=== PATIENT | female | born 1970 | race Caucasian/White ===

== ENCOUNTER 2020-02-11 15:22 | Inpatient (IN) | payer OTHER ==
[2020-02-11] MEDS ORDERED: HYDROmorphone 0.5 MG/0.5 ML Syringe IVPUSH ONE ×2 (16:06→16:46)
[2020-02-11] MEDS: Sodium Chloride 0.9% 1,000 ML IV SCH ×2 (16:28→20:55)
[2020-02-11] MEDS ORDERED: Ondansetron 4 MG/2 ML SDV IVPUSH PRN (16:45)
[2020-02-11] MEDS ORDERED: Sodium Chloride 0.9% 10 ML Syringe FLUSH PRN (17:00)
[2020-02-11] MEDS ORDERED: Sodium Chloride 0.9% 80 ML IV SCH (17:00)
[2020-02-11] MEDS ORDERED: Iopamidol 612 MG/ML 100 ML Bottle IV SCH (17:00)
[2020-02-11] MEDS ORDERED: Alum Hydrox/Mag Hydrox/Simeth 15 ML, Lidocaine 2% 15 ML PO ONE ×2 (17:35)
--- NOTE | 2020-02-11 18:03 | CRLCT ---
INDICATION: Abdominal pain and bloating. COMPARISON: None available. TECHNIQUE: Contiguous axial CT images of the abdomen and pelvis are acquired after the uneventful administration of IV contrast. Coronal and sagittal reformations generated reviewed. FINDINGS: In the left lung base there is a 1.4 x 0.9 x 1.3 cm nodule in the left lower lobe. There is an increased density within it, but it is difficult to know whether that is enhancement from the contrast or central calcifications. No other pulmonary nodules are identified. Normal heart size. No liver lesions. There is no biliary dilation. Patent hepatic vasculature. Normal gallbladder. Spleen, adrenal glands, and bilateral kidneys are unremarkable. Pancreas is unremarkable. Uterus contains a small amount of fluid in the endometrium but is otherwise unremarkable. There is a 2 cm cyst in the left ovary and the 1 cm cyst in the right ovary. The ovary size is otherwise symmetric. Urinary bladder is unremarkable. Bilateral fat containing inguinal hernias. Normal appendix. No evidence of bowel obstruction. No bowel wall thickening. There is no free fluid. No pneumoperitoneum. Normal caliber abdominal aorta. Iliac veins and IVC are unremarkable. No acute or aggressive osseous abnormalities are identified. IMPRESSION: 1. 1.4 cm nodule in left lower lobe. It has some central high density material. It is difficult to tell on this exam if that represents calcification or enhancement. Recommend noncontrast chest CT. If this is calcification within nodule it may be able to be characterize it as benign. 2. Bilateral ovarian cysts are likely physiologic. This could be a source of pain. 3. No other cause of abdominal pain is identified. Please note that all CT scans at this facility use dose modulation, iterative reconstruction, and/or weight-based dosing when appropriate to reduce radiation dose to as low as reasonably achievable. Dictated by Roque Rivera MD @ Feb 11 2020 5:42PM Signed by Dr. Roque Rivera @ Feb 11 2020 6:00PM
[2020-02-11] MEDS ORDERED: Pantoprazole 40 MG Vial IVPUSH ONE (18:31)
[2020-02-11] MEDS ORDERED: HYDROmorphone 1 MG/ML Syringe IVPUSH ONE (19:07)
[2020-02-11] MEDS ORDERED: LORazepam 2 MG/ML SDV IVPUSH ONE (19:12)
--- NOTE | 2020-02-11 20:14 | PCM.HP.2 ---
H&P History of Present Illness - General Date of Service: 02/11/20 Admit Problem/Dx: Admission Diagnosis/Problem Admission Diagnosis/Problem Epigastric pain Source of Information: Patient, Family, Provider History Limitations: Reports: No Limitations - History of Present Illness Initial Comments - Free Text/Narative: CC: It hurts across here HPI: Mai presents to the emergency room today with several weeks of progressive upper abdominal pain and bloating. She describes a pressure-like pain that spreads across her upper abdomen. Pain has steadily been getting worse and especially over the last couple of days. Pain does seem to come and go in waves without any obvious trigger other than laying down flat makes the pain worse. Pain seems to be better in the morning and gets worse as the day goes on. She has tried famotidine at home without any improvement. Pain does not obviously get better or worse when she eats. She has not had any fevers or chills. She does report rare heartburn. She has had some nausea but no significant vomiting. No change in her bowel habits. No dysuria or increased urinary frequency. She does not feel short of breath, especially with exertion. The dyspnea with exertion has been worse over the past few days. No skin rashes, myalgias. No loss of taste or smell. No obvious sick contacts or new medications. 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 Work-up in the emergency room has been fairly unremarkable. Laboratory studies are normal other than a mildly elevated AST and ALT. CT scan of the abdomen and pelvis was unremarkable. Patient has obviously been quite uncomfortable despite aggressive treatment provided in the emergency room. She will be admitted for symptomatic management and expedited work-up. - Related Data Allergies/Adverse Reactions: Allergies Allergy/AdvReac Type Severity Reaction Status Date / Time No Known Allergies Allergy Verified 02/11/20 15:38 Home Medications: Home Meds Clopidogrel [Plavix] 75 mg PO DAILY 02/11/20 [History] Metoprolol Succinate 50 mg PO DAILY 02/11/20 [History] Spironolactone [Aldactone] 25 mg PO DAILY 02/11/20 [History] atorvaSTATin [Lipitor] 40 mg PO BEDTIME 02/11/20 [History] Past Medical History Cardiovascular History: Reports: High Cholesterol, Hypertension Genitourinary History: Reports: Other (See Below) (Fibromuscular dysplasia) - Past Surgical History Cardiovascular Surgical History: Reports: Other (See Below) Other Cardiovascular Surgeries/Procedures: angioplasty Social & Family History - Family History Cardiac: Reports: CAD (grandparents) - Tobacco Use Smoking Status *Q: Never Smoker - Alcohol Use Alcohol Use History: Yes Alcohol Use in Last Twelve Months: No - Recreational Drug Use Recreational Drug Use: No H&P Review of Systems - Review of Systems: Review Of Systems: See Below Free Text/Narrative: A complete 12 point review of systems was obtained. Pertinent positives and negatives are noted in the history of present illness. All other systems were reviewed and were negative except as noted. Exam - Exam Exam: See Below - Vital Signs Vital Signs: Last Vital Signs Temp 36.9 C 02/11/20 15:46 Pulse 95 02/11/20 18:30 Resp 16 02/11/20 17:28 BP 151/97 H 02/11/20 18:30 Pulse Ox 98 02/11/20 17:28 Weight: 79.4 kg - Exam Quality Assessment: No: Supplemental Oxygen General: Alert, Oriented, Cooperative, Mild Distress HEENT: Conjunctiva Clear, Mucosa Moist & [place]. No: Scleral Icterus Neck: Supple, Trachea Midline Lungs: Clear to Auscultation, Normal Respiratory Effort Cardiovascular: Regular Rhythm, Tachycardia GI/Abdominal Exam: Normal Bowel Sounds, Soft, No Distention, Tender (mild across upper abdomen ). No: Guarding Back Exam: Normal Inspection, Full Range of Motion. No: Paraspinal Tenderness Extremities: No Pedal Edema. No: Joint Swelling, Increased Warmth Skin: Warm, Dry Neuro Extensive - Mental Status: Alert, Oriented x3, Nl Response to Commands Neuro Extensive - Motor, Sensory, Reflexes: CN II-XII Intact. No: Dysarthria, Abnormal Motor, Tremor Psychiatric: Alert, Normal Affect - Patient Data Lab Results Last 24 hrs: Laboratory Results - last 24 hr 02/11/20 02/11/20 02/11/20 Range/Units 16:15 16:15 16:15 WBC 8.8 (4.5-11.0) K/uL RBC 4.54 (3.30-5.50) M/uL Hgb 15.0 (12.0-15.0) g/dL Hct 45.7 (36.0-48.0) % MCV 101 H (80-98) fL MCH 33 H (27-31) pg MCHC 33 (32-36) % Plt Count 339 (150-400) K/uL Neut % (Auto) 66 (36-66) % Lymph % (Auto) 22 L (24-44) % [place] % (Auto) 11 H (2-6) % Eos % (Auto) 1 L (2-4) % Baso % (Auto) 1 (0-1) % Sodium 137 L (140-148) mmol/L Potassium 3.6 (3.6-5.2) mmol/L Chloride 98 L (100-108) mmol/L Carbon Dioxide 28 (21-32) mmol/L Anion Gap 14.6 H (5.0-14.0) mmol/L BUN 8 (7-18) mg/dL Creatinine 0.8 (0.6-1.0) mg/dL Est Cr Clr Drug Dosing 81.81 mL/min Estimated GFR (MDRD) > 60 (>60) Glucose 106 (74-106) mg/dL Calcium 9.5 (8.5-10.1) mg/dL Total Bilirubin 1.1 H (0.2-1.0) mg/dL AST 87 H (15-37) U/L ALT 83 H (12-78) U/L Alkaline Phosphatase 120 H (46-116) U/L Troponin I < 0.017 (0.000-0.056) ng/mL C-Reactive Protein (0.0-0.3) mg/dL Total Protein 8.0 (6.4-8.2) g/dL Albumin 4.5 (3.4-5.0) g/dL Globulin 3.5 (2.3-3.5) g/dL Albumin/Globulin Ratio 1.3 (1.2-2.2) Lipase 78 (73-393) U/L 02/11/20 Range/Units 19:25 WBC (4.5-11.0) K/uL RBC (3.30-5.50) M/uL Hgb (12.0-15.0) g/dL Hct (36.0-48.0) % MCV (80-98) fL MCH (27-31) pg MCHC (32-36) % Plt Count (150-400) K/uL Neut % (Auto) (36-66) % Lymph % (Auto) (24-44) % [place] % (Auto) (2-6) % Eos % (Auto) (2-4) % Baso % (Auto) (0-1) % Sodium (140-148) mmol/L Potassium (3.6-5.2) mmol/L Chloride (100-108) mmol/L Carbon Dioxide (21-32) mmol/L Anion Gap (5.0-14.0) mmol/L BUN (7-18) mg/dL Creatinine (0.6-1.0) mg/dL Est Cr Clr Drug Dosing mL/min Estimated GFR (MDRD) (>60) Glucose (74-106) mg/dL Calcium (8.5-10.1) mg/dL Total Bilirubin (0.2-1.0) mg/dL AST (15-37) U/L ALT (12-78) U/L Alkaline Phosphatase (46-116) U/L Troponin I (0.000-0.056) ng/mL C-Reactive Protein 0.08 (0.0-0.3) mg/dL Total Protein (6.4-8.2) g/dL Albumin (3.4-5.0) g/dL Globulin (2.3-3.5) g/dL Albumin/Globulin Ratio (1.2-2.2) Lipase (73-393) U/L Result Diagrams: 02/11/20 16:15 02/11/20 16:15 Imaging Impressions Last 24 hrs: CT Abd/Pelvis-images personally reviewed-no acute findings. Small left lower lung pulmonary nodule. Small cyst on each ovary. Normal appearing gallbladder. No obstruction. Sepsis Event Note - Evaluation Sepsis Screening Result: No Definite Risk - Focused Exam Vital Signs: Vital Signs Temp Pulse Resp BP Pulse Ox 02/11/20 18:30 95 151/97 H 02/11/20 18:15 89 159/107 H 02/11/20 17:28 108 H 16 156/105 H 98 02/11/20 16:38 113 H 16 154/96 H 99 02/11/20 15:46 36.9 C 111 H 166/105 H 98 02/11/20 15:37 36.9 C 111 H 16 166/105 H 98 Date Exam was Performed: 02/11/20 Time Exam was Performed: 20:19 *Q Meaningful Use (ADM) - VTE Risk Assess *Q Each Risk Factor Represents 1 Point: Age 41 - 59 years, Obesity ( BMI > 25 kg/m2) Total Score 1 Point Risk Factors: 2 Each Risk Factor Represents 2 Points: None Total Score 2 Point Risk Factors: 0 Each Risk Factor Represents 3 Points: None Total Score 3 Point Risk Factors: 0 Each Risk Factor Represents 5 Points: None Total Score 5 Point Risk Factors: 0 Venous Thromboembolism Risk Factor Score *Q: 2 - Problem List (1) Epigastric abdominal pain SNOMED Code(s): 79668442 ICD Code: R10.13 - EPIGASTRIC PAIN Status: Acute Current Visit: Yes Problem List Initiated/Reviewed/Updated: Yes Orders Last 24hrs: Active Orders 24 hr Category Date Time Status Patient Status Manage Transfer [TRANSFER] Routine ADT 02/11/20 20:04 Ordered CORONAVIRUS COVID-19 RAQUEL [MOLEC] Routine Lab 02/11/20 19:14 Received Iopamidol [Isovue-300 (61%)] Med 02/11/20 17:00 Active 100 ml IV . DIRECTED Ondansetron [Zofran] Med 02/11/20 16:45 Active 4 mg IVPUSH Q4H PRN Sodium Chloride 0.9% [Normal Saline] 1,000 ml Med 02/11/20 16:15 Active IV ASDIRECTED Sodium Chloride 0.9% [Normal Saline] 80 ml Med 02/11/20 17:00 Active IV ASDIRECTED Sodium Chloride 0.9% [Saline Flush] Med 02/11/20 17:00 Active 10 ml FLUSH ASDIRECTED PRN Resuscitation Status Routine Resus Stat 02/11/20 20:05 Ordered Medication Orders Sodium Chloride (Normal Saline) 1,000 mls @ 500 mls/hr IV ASDIRECTED [facility] Last Admin: 02/11/20 16:28 Dose: 500 mls/hr Documented by: AMBER Sodium Chloride (Normal Saline) 80 mls @ 3 mls/sec IV ASDIRECTED ASHWIN Last Admin: 02/11/20 17:11 Dose: 3 mls/sec Documented by: NAYELI Iopamidol (Isovue-300 (61%)) 100 ml IV . DIRECTED [facility] Last Admin: 02/11/20 17:11 Dose: 100 ml Documented by: NAYELI Ondansetron HCl (Zofran) 4 mg IVPUSH Q4H PRN PRN Reason: Nausea/Vomiting Last Admin: 02/11/20 16:50 Dose: 4 mg Documented by: TERESA Sodium Chloride (Saline Flush) 10 ml FLUSH ASDIRECTED PRN PRN Reason: Keep Vein Open Last Admin: 02/11/20 17:11 Dose: 10 ml Documented by: NAYELI Assessment/Plan Comment:: ASSESSMENT AND PLAN - Epigastric abdominal pain-acute worsening on subacute pain. CT scan unremarkable. Labs fairly unremarkable. CRP normal. COVID19 testing was negative. Differential could include chronic cholecystitis versus peptic ulcer disease versus gastritis. She is quite uncomfortable and not safe for outpatient management at this time. -Symptomatic management of pain and nausea overnight -EGD in the morning -HIDA scan in the morning Secondary hypertension-history of fibromuscular dysplasia with recent angioplasty. Blood pressure currently under good control. -Continue home medications Maintenance issues - - DVT prophylaxis -mechanical - GI prophylaxis -patient received a PPI tonight - Nutrition -clear liquids tonight, nothing by mouth after midnight - Winters catheter -not indicated CODE STATUS -full code Admission justification -patient will be referred observation status for expe dited work-up and symptomatic management Disposition -I would anticipate discharge home after the hospital stay Primary care physician -she receives her primary care in the [facility] Mario Pandya M.D. - Mortality Measure Prognosis:: Good
[2020-02-11] MEDS ORDERED: Ondansetron 4 MG/2 ML SDV IV PRN (20:57)
[2020-02-11] MEDS ORDERED: Sodium Chloride 0.9% 1,000 ML IV SCH (20:57)
[2020-02-11] MEDS ORDERED: LORazepam 2 MG/ML SDV IVPUSH PRN (20:57)
[2020-02-11] MEDS ORDERED: oxyCODONE 5 MG Tab PO PRN (20:57)
[2020-02-11] MEDS ORDERED: Ondansetron 4 MG Tab.DIS PO PRN (20:57)
[2020-02-11] MEDS ORDERED: Metoclopramide 10 MG/2 ML SDV IVPUSH PRN (20:57)
[2020-02-11] MEDS ORDERED: Acetaminophen 325 MG Tab PO PRN (20:57)
[2020-02-11] MEDS ORDERED: atorvaSTATin 20 MG Tab PO SCH (21:00)
[2020-02-12] MEDS: HYDROmorphone 1 MG/ML Syringe IVPUSH PRN ×4 (04:40→16:24)
--- NOTE | 2020-02-12 08:34 | PCM.HP.2 ---
H&P History of Present Illness - General Date of Service: 02/12/20 Admit Problem/Dx: Admission Diagnosis/Problem Admission Diagnosis/Problem Epigastric pain Source of Information: Patient History Limitations: Reports: No Limitations - History of Present Illness Onset of Symptoms: Reports: Gradual Duration of Symptoms: Reports: Day(s):, Getting Worse Location: Reports: Abdomen Quality: Reports: Ache, Dull, Pressure, Stabbing Severity: Mild Improves with: Reports: Medication Worsens with: Reports: None Context: Reports: Sick Contact Associated Symptoms: Reports: No Other Symptoms Epigastric Pain Score (Numeric/FACES): 6 - Related Data Allergies/Adverse Reactions: Allergies Allergy/AdvReac Type Severity Reaction Status Date / Time No Known Allergies Allergy Verified 02/11/20 15:38 Home Medications: Home Meds Clopidogrel [Plavix] 75 mg PO DAILY 02/11/20 [History] Metoprolol Succinate 50 mg PO DAILY 02/11/20 [History] Spironolactone [Aldactone] 25 mg PO DAILY 02/11/20 [History] atorvaSTATin [Lipitor] 40 mg PO BEDTIME 02/11/20 [History] Past Medical History Cardiovascular History: Reports: High Cholesterol, Hypertension Genitourinary History: Reports: Other (See Below) - Past Surgical History Cardiovascular Surgical History: Reports: Other (See Below) Other Cardiovascular Surgeries/Procedures: angioplasty Social & Family History - Family History Cardiac: Reports: CAD - Tobacco Use Smoking Status *Q: Never Smoker - Caffeine Use Caffeine Use: Reports: Coffee - Recreational Drug Use Recreational Drug Use: No H&P Review of Systems - Review of Systems: Review Of Systems: Comprehensive ROS is negative, except as noted in HPI. Exam - Exam Exam: See Below - Vital Signs Vital Signs: Last Vital Signs Temp 97.4 F 02/12/20 07:28 Pulse 77 02/12/20 07:28 Resp 16 02/12/20 07:28 BP 131/90 02/12/20 07:28 Pulse Ox 94 L 02/12/20 07:28 Weight: 179 lb 6.4 oz - Exam General: Alert, Oriented, Cooperative HEENT: PERRLA Neck: Supple, Trachea Midline Lungs: Clear to Auscultation, Normal Respiratory Effort Cardiovascular: Regular Rate GI/Abdominal Exam: Soft, Guarding (right upper quadrant) (Female) Exam: Deferred Rectal (Female) Exam: Deferred Back Exam: Normal Inspection, Full Range of Motion Extremities: Normal Inspection, Normal Range of Motion Skin: Warm, Dry, Intact Neurological: Cranial Nerves Intact, Reflexes Equal Bilateral Neuro Extensive - Mental Status: Alert, Oriented x3, Normal Mood/Affect Neuro Extensive - Motor, Sensory, Reflexes: CN II-XII Intact Psychiatric: Alert, Normal Affect, Normal Mood - Patient Data Lab Results Last 24 hrs: Laboratory Results - last 24 hr 02/11/20 02/11/20 02/11/20 Range/Units 16:15 16:15 16:15 WBC 8.8 (4.5-11.0) K/uL RBC 4.54 (3.30-5.50) M/uL Hgb 15.0 (12.0-15.0) g/dL Hct 45.7 (36.0-48.0) % MCV 101 H (80-98) fL MCH 33 H (27-31) pg MCHC 33 (32-36) % Plt Count 339 (150-400) K/uL Neut % (Auto) 66 (36-66) % Lymph % (Auto) 22 L (24-44) % [place] % (Auto) 11 H (2-6) % Eos % (Auto) 1 L (2-4) % Baso % (Auto) 1 (0-1) % Sodium 137 L (140-148) mmol/L Potassium 3.6 (3.6-5.2) mmol/L Chloride 98 L (100-108) mmol/L Carbon Dioxide 28 (21-32) mmol/L Anion Gap 14.6 H (5.0-14.0) mmol/L BUN 8 (7-18) mg/dL Creatinine 0.8 (0.6-1.0) mg/dL Est Cr Clr Drug Dosing 81.81 mL/min Estimated GFR (MDRD) > 60 (>60) Glucose 106 (74-106) mg/dL Calcium 9.5 (8.5-10.1) mg/dL Total Bilirubin 1.1 H (0.2-1.0) mg/dL AST 87 H (15-37) U/L ALT 83 H (12-78) U/L Alkaline Phosphatase 120 H (46-116) U/L Troponin I < 0.017 (0.000-0.056) ng/mL C-Reactive Protein (0.0-0.3) mg/dL Total Protein 8.0 (6.4-8.2) g/dL Albumin 4.5 (3.4-5.0) g/dL Globulin 3.5 (2.3-3.5) g/dL Albumin/Globulin Ratio 1.3 (1.2-2.2) Lipase 78 (73-393) U/L SARS Virus RNA (PCR) (NEGATIVE) 02/11/20 02/11/20 02/12/20 Range/Units 19:14 19:25 04:37 WBC 6.2 (4.5-11.0) K/uL RBC 4.15 (3.30-5.50) M/uL Hgb 13.4 (12.0-15.0) g/dL Hct 42.4 (36.0-48.0) % MCV 102 H (80-98) fL MCH 32 H (27-31) pg MCHC 32 (32-36) % Plt Count 307 (150-400) K/uL Neut % (Auto) (36-66) % Lymph % (Auto) (24-44) % [place] % (Auto) (2-6) % Eos % (Auto) (2-4) % Baso % (Auto) (0-1) % Sodium (140-148) mmol/L Potassium (3.6-5.2) mmol/L Chloride (100-108) mmol/L Carbon Dioxide (21-32) mmol/L Anion Gap (5.0-14.0) mmol/L BUN (7-18) mg/dL Creatinine (0.6-1.0) mg/dL Est Cr Clr Drug Dosing mL/min Estimated GFR (MDRD) (>60) Glucose (74-106) mg/dL Calcium (8.5-10.1) mg/dL Total Bilirubin (0.2-1.0) mg/dL AST (15-37) U/L ALT (12-78) U/L Alkaline Phosphatase (46-116) U/L Troponin I (0.000-0.056) ng/mL C-Reactive Protein 0.08 (0.0-0.3) mg/dL Total Protein (6.4-8.2) g/dL Albumin (3.4-5.0) g/dL Globulin (2.3-3.5) g/dL Albumin/Globulin Ratio (1.2-2.2) Lipase (73-393) U/L SARS Virus RNA (PCR) Negative (NEGATIVE) 02/12/20 Range/Units 04:37 WBC (4.5-11.0) K/uL RBC (3.30-5.50) M/uL Hgb (12.0-15.0) g/dL Hct (36.0-48.0) % MCV (80-98) fL MCH (27-31) pg MCHC (32-36) % Plt Count (150-400) K/uL Neut % (Auto) (36-66) % Lymph % (Auto) (24-44) % [place] % (Auto) (2-6) % Eos % (Auto) (2-4) % Baso % (Auto) (0-1) % Sodium 140 (140-148) mmol/L Potassium 3.5 L (3.6-5.2) mmol/L Chloride 105 (100-108) mmol/L Carbon Dioxide 28 (21-32) mmol/L Anion Gap 10.5 (5.0-14.0) mmol/L BUN 5 L (7-18) mg/dL Creatinine 0.8 (0.6-1.0) mg/dL Est Cr Clr Drug Dosing 81.81 mL/min Estimated GFR (MDRD) > 60 (>60) Glucose 111 H (74-106) mg/dL Calcium 7.8 L D (8.5-10.1) mg/dL Total Bilirubin 1.1 H (0.2-1.0) mg/dL AST 51 H (15-37) U/L ALT 56 (12-78) U/L Alkaline Phosphatase 94 (46-116) U/L Troponin I (0.000-0.056) ng/mL C-Reactive Protein (0.0-0.3) mg/dL Total Protein 6.0 L (6.4-8.2) g/dL Albumin 3.2 L (3.4-5.0) g/dL Globulin 2.8 (2.3-3.5) g/dL Albumin/Globulin Ratio 1.1 L (1.2-2.2) Lipase (73-393) U/L SARS Virus RNA (PCR) (NEGATIVE) Result Diagrams: 02/12/20 04:37 02/12/20 04:37 Sepsis Event Note - Evaluation Sepsis Screening Result: No Definite Risk - Focused Exam Vital Signs: Vital Signs Temp Temp Pulse Resp BP Pulse Ox 02/12/20 07:28 97.4 F 77 16 131/90 94 L 02/12/20 04:17 97.4 F 83 16 120/75 98 02/11/20 20:56 97.0 F 88 16 166/96 H 95 Date Exam was Performed: 02/12/20 Time Exam was Performed: 08:31 Problem List Initiated/Reviewed/Updated: Yes Orders Last 24hrs: Active Orders 24 hr Category Date Time Status Patient Status [ADT] Routine ADT 02/11/20 20:57 Active Antiembolic Devices [RC] .Routine Care 02/11/20 20:57 Active Communication Order [RC] ASDIRECTED Care 02/12/20 07:38 Active Intake and Output [RC] QSHIFT Care 02/11/20 20:57 Active Notify Provider Consults [RC] ASDIRECTED Care 02/11/20 20:57 Active Notify Provider Vital Signs [RC] ASDIRECTED Care 02/11/20 20:57 Active Oxygen Therapy [RC] PRN Care 02/11/20 20:57 Active Up ad Mayuri [RC] ASDIRECTED Care 02/11/20 20:57 Active VTE/DVT Education [RC] Per Unit Routine Care 02/11/20 20:57 Active Vital Signs [RC] Q4H Care 02/11/20 20:57 Active Consult to Physician [CONS] Routine Cons 02/11/20 20:57 Ordered Nothing per Oral After Midnight Diet [DIET] Diet 02/11/20 Dinner Active Cholescintigraphy w Pharm Int [NM] Routine Exams 02/12/20 07:00 Ordered Acetaminophen [Tylenol] Med 02/11/20 20:57 Active 650 mg PO Q4H PRN Clopidogrel [Plavix] Med 02/12/20 09:00 Active 75 mg PO DAILY HYDROmorphone [Dilaudid] Med 02/11/20 20:57 Active 1 mg IVPUSH Q2H PRN LORazepam [Ativan] Med 02/11/20 20:57 Active 0.5 mg IVPUSH Q4H PRN Metoclopramide [Reglan] Med 02/11/20 20:57 Active 5 mg IVPUSH Q6H PRN Metoprolol Succinate [Toprol XL] Med 02/12/20 09:00 Active 50 mg PO DAILY Ondansetron [Zofran ODT] Med 02/11/20 20:57 Active 4 mg PO Q6H PRN Ondansetron [Zofran] Med 02/11/20 20:57 Active 4 mg IV Q6H PRN Pantoprazole [ProTONIX IV] Med 02/12/20 09:00 Active 40 mg IVPUSH BID Sodium Chloride 0.9% [Normal Saline] 1,000 ml Med 02/11/20 20:57 Active IV ASDIRECTED Spironolactone [Aldactone] Med 02/12/20 09:00 Active 25 mg PO DAILY atorvaSTATin [Lipitor] Med 02/12/20 09:00 Active 40 mg PO DAILY oxyCODONE Med 02/11/20 20:57 Active 5 - 10 mg PO Q4H PRN Sequential Compression Device [OM.PC] Routine Oth 02/11/20 20:57 Ordered Resuscitation Status Routine Resus Stat 02/11/20 20:05 Ordered Medication Orders Acetaminophen (Tylenol) 650 mg PO Q4H PRN PRN Reason: Pain (Mild 1-3)/fever Atorvastatin Calcium (Lipitor) 40 mg PO DAILY ASHWIN Clopidogrel Bisulfate (Plavix) 75 mg PO DAILY ASHWIN Hydromorphone HCl (Dilaudid) 1 mg IVPUSH Q2H PRN PRN Reason: Pain (severe 7-10) Last Admin: 02/12/20 07:35 Dose: 1 mg Documented by: Admin: 02/12/20 04:40 Dose: 1 mg Documented by: GILDA Sodium Chloride (Normal Saline) 1,000 mls @ 100 mls/hr IV ASDIRECTED ASHWIN Last Admin: 02/12/20 04:42 Dose: 100 mls/hr Documented by: GILDA Lorazepam (Ativan) 0.5 mg IVPUSH Q4H PRN PRN Reason: Nausea/Vomiting Metoclopramide HCl (Reglan) 5 mg IVPUSH Q6H PRN PRN Reason: Nausea Metoprolol Succinate (Toprol Xl) 50 mg PO DAILY ASHWIN Ondansetron HCl (Zofran) 4 mg IV Q6H PRN PRN Reason: Nausea/Vomiting Last Admin: 02/12/20 04:41 Dose: 4 mg Documented by: GILDA Ondansetron HCl (Zofran Odt) 4 mg PO Q6H PRN PRN Reason: Nausea able to take PO Oxycodone HCl (Oxycodone) 5 - 10 mg PO Q4H PRN PRN Reason: Pain Pantoprazole Sodium (Protonix Iv) 40 mg IVPUSH BID ASHWIN Spironolactone (Aldactone) 25 mg PO DAILY ASHWIN Assessment/Plan Comment:: ASSESSMENT AND PLAN - Epigastric abdominal pain-acute worsening on subacute pain. CT scan unremarkable. Labs fairly unremarkable. CRP normal. COVID19 testing was negative. Differential could include chronic cholecystitis versus peptic ulcer disease versus gastritis. She is quite uncomfortable and not safe for outpatient management at this time. -Symptomatic management of pain and nausea overnight -EGD in the morning -HIDA scan in the morning Secondary hypertension-history of fibromuscular dysplasia with recent angioplasty. Blood pressure currently under good control. -Continue home medications Maintenance issues - - DVT prophylaxis -mechanical - GI prophylaxis -patient received a PPI tonight - Nutrition -clear liquids tonight, nothing by mouth after midnight - Winters catheter -not indicated CODE STATUS -full code Admission justification -patient will be referred observation status for expedited work-up and symptomatic management Disposition -I would anticipate discharge home after the hospital stay Primary care physician -she receives her primary care in the [facility] Mario Pandya M.D. - Mortality Measure Prognosis:: Good (Thank you for this consult.)
[2020-02-12] MEDS ORDERED: fentaNYL 100 MCG/2 ML SDV ONE (10:15)
[2020-02-12] MEDS ORDERED: Propofol 200 MG/20 ML SDV ONE (10:15)
[2020-02-12] MEDS ORDERED: Midazolam 1 MG/ML 2 ML SDV ONE (10:15)
--- NOTE | 2020-02-12 10:40 | PCM.PN ---
- General Info Date of Service: 02/12/20 Subjective Update: No acute events overnight. No fevers. Abdominal pain is better but not resolved. She has received 2 doses of IV pain medication since admission from the emergency room. Mild nausea but no vomiting. HIDA scan was abnormal with an ejection fraction of 15%. EGD planned for later in the morning. Functional Status: Reports: Pain Controlled - Patient Data Vitals - Most Recent: Last Vital Signs Temp 36.0 C L 02/12/20 10:28 Pulse 77 02/12/20 10:28 Resp 16 02/12/20 10:28 BP 139/84 02/12/20 10:28 Pulse Ox 96 02/12/20 10:28 Weight - Most Recent: 81.374 kg I&O - Last 24 Hours: Intake & Output 02/11/20 02/12/20 02/12/20 22:59 06:59 14:59 Intake Total 962 Output Total 450 300 Balance 512 -300 Lab Results Last 24 Hours: Laboratory Results - last 24 hr 02/11/20 02/11/20 02/11/20 Range/Units 16:15 16:15 16:15 WBC 8.8 (4.5-11.0) K/uL RBC 4.54 (3.30-5.50) M/uL Hgb 15.0 (12.0-15.0) g/dL Hct 45.7 (36.0-48.0) % MCV 101 H (80-98) fL MCH 33 H (27-31) pg MCHC 33 (32-36) % Plt Count 339 (150-400) K/uL Neut % (Auto) 66 (36-66) % Lymph % (Auto) 22 L (24-44) % Nuckolls % (Auto) 11 H (2-6) % Eos % (Auto) 1 L (2-4) % Baso % (Auto) 1 (0-1) % Sodium 137 L (140-148) mmol/L Potassium 3.6 (3.6-5.2) mmol/L Chloride 98 L (100-108) mmol/L Carbon Dioxide 28 (21-32) mmol/L Anion Gap 14.6 H (5.0-14.0) mmol/L BUN 8 (7-18) mg/dL Creatinine 0.8 (0.6-1.0) mg/dL Est Cr Clr Drug Dosing 81.81 mL/min Estimated GFR (MDRD) > 60 (>60) Glucose 106 (74-106) mg/dL Calcium 9.5 (8.5-10.1) mg/dL Total Bilirubin 1.1 H (0.2-1.0) mg/dL AST 87 H (15-37) U/L ALT 83 H (12-78) U/L Alkaline Phosphatase 120 H (46-116) U/L Troponin I < 0.017 (0.000-0.056) ng/mL C-Reactive Protein (0.0-0.3) mg/dL Total Protein 8.0 (6.4-8.2) g/dL Albumin 4.5 (3.4-5.0) g/dL Globulin 3.5 (2.3-3.5) g/dL Albumin/Globulin Ratio 1.3 (1.2-2.2) Lipase 78 (73-393) U/L SARS Virus RNA (PCR) (NEGATIVE) 02/11/20 02/11/20 02/12/20 Range/Units 19:14 19:25 04:37 WBC 6.2 (4.5-11.0) K/uL RBC 4.15 (3.30-5.50) M/uL Hgb 13.4 (12.0-15.0) g/dL Hct 42.4 (36.0-48.0) % MCV 102 H (80-98) fL MCH 32 H (27-31) pg MCHC 32 (32-36) % Plt Count 307 (150-400) K/uL Neut % (Auto) (36-66) % Lymph % (Auto) (24-44) % Nuckolls % (Auto) (2-6) % Eos % (Auto) (2-4) % Baso % (Auto) (0-1) % Sodium (140-148) mmol/L Potassium (3.6-5.2) mmol/L Chloride (100-108) mmol/L Carbon Dioxide (21-32) mmol/L Anion Gap (5.0-14.0) mmol/L BUN (7-18) mg/dL Creatinine (0.6-1.0) mg/dL Est Cr Clr Drug Dosing mL/min Estimated GFR (MDRD) (>60) Glucose (74-106) mg/dL Calcium (8.5-10.1) mg/dL Total Bilirubin (0.2-1.0) mg/dL AST (15-37) U/L ALT (12-78) U/L Alkaline Phosphatase (46-116) U/L Troponin I (0.000-0.056) ng/mL C-Reactive Protein 0.08 (0.0-0.3) mg/dL Total Protein (6.4-8.2) g/dL Albumin (3.4-5.0) g/dL Globulin (2.3-3.5) g/dL Albumin/Globulin Ratio (1.2-2.2) Lipase (73-393) U/L SARS Virus RNA (PCR) Negative (NEGATIVE) 02/12/20 Range/Units 04:37 WBC (4.5-11.0) K/uL RBC (3.30-5.50) M/uL Hgb (12.0-15.0) g/dL Hct (36.0-48.0) % MCV (80-98) fL MCH (27-31) pg MCHC (32-36) % Plt Count (150-400) K/uL Neut % (Auto) (36-66) % Lymph % (Auto) (24-44) % Nuckolls % (Auto) (2-6) % Eos % (Auto) (2-4) % Baso % (Auto) (0-1) % Sodium 140 (140-148) mmol/L Potassium 3.5 L (3.6-5.2) mmol/L Chloride 105 (100-108) mmol/L Carbon Dioxide 28 (21-32) mmol/L Anion Gap 10.5 (5.0-14.0) mmol/L BUN 5 L (7-18) mg/dL Creatinine 0.8 (0.6-1.0) mg/dL Est Cr Clr Drug Dosing 81.81 mL/min Estimated GFR (MDRD) > 60 (>60) Glucose 111 H (74-106) mg/dL Calcium 7.8 L D (8.5-10.1) mg/dL Total Bilirubin 1.1 H (0.2-1.0) mg/dL AST 51 H (15-37) U/L ALT 56 (12-78) U/L Alkaline Phosphatase 94 (46-116) U/L Troponin I (0.000-0.056) ng/mL C-Reactive Protein (0.0-0.3) mg/dL Total Protein 6.0 L (6.4-8.2) g/dL Albumin 3.2 L (3.4-5.0) g/dL Globulin 2.8 (2.3-3.5) g/dL Albumin/Globulin Ratio 1.1 L (1.2-2.2) Lipase (73-393) U/L SARS Virus RNA (PCR) (NEGATIVE) Med Orders - Current: Current Medications Acetaminophen (Tylenol) 650 mg PO Q4H PRN PRN Reason: Pain (Mild 1-3)/fever Atorvastatin Calcium (Lipitor) 40 mg PO DAILY [facility] Clopidogrel Bisulfate (Plavix) 75 mg PO DAILY [facility] Hydromorphone HCl (Dilaudid) 1 mg IVPUSH Q2H PRN PRN Reason: Pain (severe 7-10) Last Admin: 02/12/20 07:35 Dose: 1 mg Documented by: Sodium Chloride (Normal Saline) 1,000 mls @ 100 mls/hr IV ASDIRECTED [facility] Last Admin: 02/12/20 04:42 Dose: 100 mls/hr Documented by: Lorazepam (Ativan) 0.5 mg IVPUSH Q4H PRN PRN Reason: Nausea/Vomiting Metoclopramide HCl (Reglan) 5 mg IVPUSH Q6H PRN PRN Reason: Nausea Metoprolol Succinate (Toprol Xl) 50 mg PO DAILY [facility] Ondansetron HCl (Zofran) 4 mg IV Q6H PRN PRN Reason: Nausea/Vomiting Last Admin: 02/12/20 04:41 Dose: 4 mg Documented by: Ondansetron HCl (Zofran Odt) 4 mg PO Q6H PRN PRN Reason: Nausea able to take PO Oxycodone HCl (Oxycodone) 5 - 10 mg PO Q4H PRN PRN Reason: Pain Pantoprazole Sodium (Protonix Iv) 40 mg IVPUSH BID [facility] Spironolactone (Aldactone) 25 mg PO DAILY [facility] Discontinued Medications Atorvastatin Calcium (Lipitor) 40 mg PO BEDTIME [facility] Last Admin: 02/11/20 23:00 Dose: Not Given Documented by: Al Hydroxide/Mg Hydroxide 15 (ml/ Lidocaine HCl 15 ml) 0 ml PO ONETIME ONE Stop: 02/11/20 17:36 Last Admin: 02/11/20 17:45 Dose: 15 ml Documented by: Fentanyl (Sublimaze) Confirm Administered Dose 100 mcg .ROUTE .STK-MED ONE Stop: 02/12/20 10:16 Hydromorphone HCl (Dilaudid) 0.5 mg IVPUSH ONETIME ONE Stop: 02/11/20 16:07 Last Admin: 02/11/20 16:25 Dose: 0.5 mg Documented by: Hydromorphone HCl (Dilaudid) 0.5 mg IVPUSH ONETIME ONE Stop: 02/11/20 16:47 Last Admin: 02/11/20 16:52 Dose: 0.5 mg Documented by: Hydromorphone HCl (Dilaudid) 1 mg IVPUSH ONETIME ONE Stop: 02/11/20 19:08 Last Admin: 02/11/20 20:41 Dose: 1 mg Documented by: Sodium Chloride (Normal Saline) 1,000 mls @ 500 mls/hr IV ASDIRECTED [facility] Last Admin: 02/11/20 20:55 Dose: 500 mls/hr Documented by: Sodium Chloride (Normal Saline) 80 mls @ 3 mls/sec IV ASDIRECTED [facility] Last Admin: 02/11/20 17:11 Dose: 3 mls/sec Documented by: Iopamidol (Isovue-300 (61%)) 100 ml IV . DIRECTED [facility] Last Admin: 02/11/20 17:11 Dose: 100 ml Documented by: Lorazepam (Ativan) 0.5 mg IVPUSH ONETIME ONE Stop: 02/11/20 19:13 Last Admin: 02/11/20 19:20 Dose: 0.5 mg Documented by: Midazolam HCl (Versed 1 Mg/Ml) Confirm Administered Dose 2 mg .ROUTE .STK-MED ONE Stop: 02/12/20 10:16 Ondansetron HCl (Zofran) 4 mg IVPUSH Q4H PRN PRN Reason: Nausea/Vomiting Last Admin: 02/11/20 16:50 Dose: 4 mg Documented by: Pantoprazole Sodium (Protonix Iv) 40 mg IVPUSH ONETIME ONE Stop: 02/11/20 18:32 Last Admin: 02/11/20 18:38 Dose: 40 mg Documented by: Propofol (Diprivan 20 Ml) Confirm Administered Dose 200 mg .ROUTE .STK-MED ONE Stop: 02/12/20 10:16 Sodium Chloride (Saline Flush) 10 ml FLUSH ASDIRECTED PRN PRN Reason: Keep Vein Open Last Admin: 02/11/20 17:11 Dose: 10 ml Documented by: - Exam Quality Assessment: No: Supplemental Oxygen General: Alert, Oriented, Cooperative, No Acute Distress Lungs: Normal Respiratory Effort Cardiovascular: Regular Rate, Regular Rhythm GI/Abdominal Exam: Soft, No Distention Extremities: No Pedal Edema Psy/Mental Status: Alert, Normal Affect Sepsis Event Note - Evaluation Sepsis Screening Result: No Definite Risk - Focused Exam Vital Signs: Vital Signs Temp Pulse Resp BP Pulse Ox 02/12/20 10:28 36.0 C L 77 16 139/84 96 02/12/20 07:28 36.3 C 77 16 131/90 94 L 02/12/20 04:17 36.3 C 83 16 120/75 98 Date Exam was Performed: 02/12/20 Time Exam was Performed: 10:37 - Problem List & Annotations (1) Epigastric abdominal pain SNOMED Code(s): 83367275 Code(s): R10.13 - EPIGASTRIC PAIN Status: Acute Current Visit: Yes - Problem List Review Problem List Initiated/Reviewed/Updated: Yes - My Orders Last 24 Hours: My Active Orders 02/11/20 Dinner Nothing per Oral After Midnight Diet [DIET] 02/11/20 20:05 Resuscitation Status Routine 02/11/20 20:57 Acetaminophen [Tylenol] 650 mg PO Q4H PRN HYDROmorphone [Dilaudid] 1 mg IVPUSH Q2H PRN LORazepam [Ativan] 0.5 mg IVPUSH Q4H PRN Metoclopramide [Reglan] 5 mg IVPUSH Q6H PRN Ondansetron [Zofran ODT] 4 mg PO Q6H PRN Ondansetron [Zofran] 4 mg IV Q6H PRN Sodium Chloride 0.9% [Normal Saline] 1,000 ml IV ASDIRECTED oxyCODONE 5 - 10 mg PO Q4H PRN 02/11/20 20:57 Patient Status [ADT] Routine Antiembolic Devices [RC] .Routine Intake and Output [RC] QSHIFT Notify Provider Consults [RC] ASDIRECTED Notify Provider Vital Signs [RC] ASDIRECTED Oxygen Therapy [RC] PRN Up ad Mayuri [RC] ASDIRECTED VTE/DVT Education [RC] Per Unit Routine Vital Signs [RC] Q4H Consult to Physician [CONS] Routine Sequential Compression Device [OM.PC] Routine 02/12/20 07:00 Cholescintigraphy w Pharm Int [NM] Routine 02/12/20 09:00 Clopidogrel [Plavix] 75 mg PO DAILY Metoprolol Succinate [Toprol XL] 50 mg PO DAILY Spironolactone [Aldactone] 25 mg PO DAILY atorvaSTATin [Lipitor] 40 mg PO DAILY 02/12/20 14:00 Potassium Chloride [Klor-Con M20] 40 meq PO ONETIME ONE 02/13/20 05:00 BASIC METABOLIC PANEL,BMP [CHEM] Timed - Plan Plan:: ASSESSMENT AND PLAN - Chronic cholecystitis/biliary dyskinesia-nuclear medicine scan abnormal with an ejection fraction of only 15%. Pain is persistent but improved compared to yesterday. -Symptomatic management of pain and nausea overnight -Surgical consultation for EGD today and probable cholecystectomy tomorrow -EGD this morning to rule out gastric pathology -Planning cholecystectomy tomorrow Secondary hypertension-history of fibromuscular dysplasia with recent angiop lasty. Blood pressure currently under good control. -Continue home medications Maintenance issues - - DVT prophylaxis -mechanical - GI prophylaxis -PPI - Nutrition -n.p.o. until after her EGD Admission justification -patient will be referred observation status for expedited work-up and symptomatic management Disposition -I would anticipate discharge home after the hospital stay Mario Pandya M.D.
[2020-02-12] MEDS: Pantoprazole 40 MG Vial IVPUSH SCH ×2 (10:43→20:21)
--- NOTE | 2020-02-12 13:38 | NM ---
HEPATOBILIARY SCAN WITH EJECTION FRACTION: Clinical History: Epigastric pain, bloating Multiple images of the hepatobiliary system were obtained following the IV injection of 5.2 mCi of technetium 99m Choletec. 60 minutes into the study the patient was given1.64 mcg of CCK by slow IV push.]Quantitative analysis of the gallbladder was performed. Findings: There is a normal pattern of hepatic uptake. Biliary activity is seen at 10minutes. Gallbladder activity is seen at 20minutes. Intestinal activity is seen at 60minutes. Following the Kinevac infusion the gallbladder ejection fraction was calculated at 15%. Impression:Normal visualization of the biliary tree and liver. The gallbladder ejection fraction wasabnormally low at 15%. It should be noted that the patient was given Dilaudid just prior to imaging. This can diminish the ejection fraction
[2020-02-12] MEDS ORDERED: Potassium Chloride 20 MEQ Tab.ER PO ONE ×2 (14:00→16:30)
[2020-02-12] MEDS: atorvaSTATin 20 MG Tab PO SCH (14:21)
[2020-02-12] MEDS: Spironolactone 25 MG Tab PO SCH (14:22)
[2020-02-12] MEDS: Metoprolol Succinate 50 MG Tab.ER PO SCH (14:22)
[2020-02-12] MEDS: Clopidogrel 75 MG Tab PO SCH (14:55)
[2020-02-13] MEDS: Dextrose 5%-Lactated Ringers 1,000 ML IV SCH ×4 (00:55→23:49)
[2020-02-13] MEDS ORDERED: Bupivacaine 0.5%/EPINEPHrine 1:200,000 50 ML MDV ONE (07:02)
[2020-02-13] MEDS ORDERED: fentaNYL 250 MCG/5 ML SDV ONE (08:15)
[2020-02-13] MEDS ORDERED: Succinylcholine 200 MG/10 ML MDV ONE (08:16)
[2020-02-13] MEDS ORDERED: Neostigmine Methylsulfate 1 MG/ML 5 ML Syringe ONE (08:16)
[2020-02-13] MEDS ORDERED: Dexamethasone 4 MG/ML SDV ONE (08:16)
[2020-02-13] MEDS ORDERED: Propofol 200 MG/20 ML SDV ONE (08:16)
[2020-02-13] MEDS ORDERED: Rocuronium 50 MG/5 ML Vial ONE (08:16)
[2020-02-13] MEDS ORDERED: Ondansetron 4 MG/2 ML SDV ONE (08:16)
[2020-02-13] MEDS ORDERED: Glycopyrrolate 0.2 MG/ML 5 ML MDV ONE (08:16)
[2020-02-13] MEDS: HYDROmorphone 1 MG/ML Syringe IVPUSH PRN (09:22)
[2020-02-13] MEDS: Clopidogrel 75 MG Tab PO SCH (09:23)
[2020-02-13] MEDS: Pantoprazole 40 MG Vial IVPUSH SCH (09:23)
[2020-02-13] MEDS: atorvaSTATin 20 MG Tab PO SCH (09:23)
[2020-02-13] MEDS ORDERED: Ropivacaine 40 ML, dexAMETHasone 8 MG, EPINEPHrine 0.4 MG, Sodium Chloride 0.9% 37.6 ML NERVRT SCH ×4 (09:30)
[2020-02-13] MEDS ORDERED: cefOXitin 2 GM in Sodium Chloride 0.9% 50 ML IV ONE (09:30)
[2020-02-13] MEDS ORDERED: Ketamine 500 MG/5 ML MDV IV SCH (09:30)
--- NOTE | 2020-02-13 09:42 | PCM.PN ---
- General Info Date of Service: 02/13/20 Subjective Update: No acute events overnight. Pain has been fairly well controlled but does persist. EGD yesterday showed some very mild gastritis. No fevers. Cholecystectomy planned today. Functional Status: Reports: Pain Controlled - Patient Data Vitals - Most Recent: Last Vital Signs Temp 36.3 C 02/13/20 08:03 Pulse 81 02/13/20 08:03 Resp 16 02/13/20 08:03 BP 138/87 02/13/20 08:03 Pulse Ox 97 02/13/20 08:03 Weight - Most Recent: 81.374 kg I&O - Last 24 Hours: Intake & Output 02/12/20 02/13/20 02/13/20 22:59 06:59 14:59 Intake Total 1140 Balance 1140 Lab Results Last 24 Hours: Laboratory Results - last 24 hr 02/13/20 Range/Units 04:42 Sodium 140 (140-148) mmol/L Potassium 4.2 (3.6-5.2) mmol/L Chloride 107 (100-108) mmol/L Carbon Dioxide 29 (21-32) mmol/L Anion Gap 3.6 L (5.0-14.0) mmol/L BUN 2 L D (7-18) mg/dL Creatinine 0.7 (0.6-1.0) mg/dL Est Cr Clr Drug Dosing 93.50 mL/min Estimated GFR (MDRD) > 60 (>60) Glucose 125 H (74-106) mg/dL Calcium 8.3 L (8.5-10.1) mg/dL Med Orders - Current: Current Medications Acetaminophen (Tylenol) 650 mg PO Q4H PRN PRN Reason: Pain (Mild 1-3)/fever Atorvastatin Calcium (Lipitor) 40 mg PO DAILY [facility] Last Admin: 02/13/20 09:23 Dose: Not Given Documented by: Clopidogrel Bisulfate (Plavix) 75 mg PO DAILY [facility] Last Admin: 02/13/20 09:23 Dose: Not Given Documented by: Ropivacaine 40 ml/Dexamethasone 8 mg/Epinephrine HCl 0.4 mg/ Sodium Chloride 37.6 ml 0 ml NERVRT ASDIRECTED [facility] Hydromorphone HCl (Dilaudid) 0.5 - 1 mg IVPUSH Q2H PRN PRN Reason: Pain Last Admin: 02/13/20 09:22 Dose: 0.5 mg Documented by: Dextrose/Lactated Ringer's (Dextrose 5%-Lactated Ringers) 1,000 mls @ 100 mls/hr IV ASDIRECTED [facility] Last Admin: 02/13/20 00:55 Dose: 100 mls/hr Documented by: Cefoxitin Sodium 2 gm/ Sodium (Chloride) 50 mls @ 100 mls/hr IV ONETIME ONE Stop: 02/13/20 09:59 Ketamine HCl (Ketalar) 30 mg IV ASDIRECTED [facility] Lorazepam (Ativan) 0.5 mg IVPUSH Q4H PRN PRN Reason: Nausea/Vomiting Last Admin: 02/12/20 20:18 Dose: 0.5 mg Documented by: Metoclopramide HCl (Reglan) 5 mg IVPUSH Q6H PRN PRN Reason: Nausea Metoprolol Succinate (Toprol Xl) 50 mg PO DAILY [facility] Last Admin: 02/12/20 14:22 Dose: 50 mg Documented by: Ondansetron HCl (Zofran) 4 mg IV Q6H PRN PRN Reason: Nausea/Vomiting Last Admin: 02/12/20 04:41 Dose: 4 mg Documented by: Ondansetron HCl (Zofran Odt) 4 mg PO Q6H PRN PRN Reason: Nausea able to take PO Oxycodone HCl (Oxycodone) 5 - 10 mg PO Q4H PRN PRN Reason: Pain Pantoprazole Sodium (Protonix Iv) 40 mg IVPUSH BID [facility] Last Admin: 02/13/20 09:23 Dose: 40 mg Documented by: Spironolactone (Aldactone) 25 mg PO DAILY [facility] Last Admin: 02/12/20 14:22 Dose: 25 mg Documented by: Discontinued Medications Atorvastatin Calcium (Lipitor) 40 mg PO BEDTIME [facility] Last Admin: 02/11/20 23:00 Dose: Not Given Documented by: Bupivacaine HCl/Epinephrine Bitart (Marcaine 0.5%/Epinephrine 1:200,000) Confirm Administered Dose 50 ml .ROUTE .STK-MED ONE Stop: 02/13/20 07:03 Al Hydroxide/Mg Hydroxide 15 (ml/ Lidocaine HCl 15 ml) 0 ml PO ONETIME ONE Stop: 02/11/20 17:36 Last Admin: 02/11/20 17:45 Dose: 15 ml Documented by: Dexamethasone (Dexamethasone) Confirm Administered Dose 4 mg .ROUTE .STK-MED ONE Stop: 02/13/20 08:17 Fentanyl (Sublimaze) Confirm Administered Dose 100 mcg .ROUTE .STK-MED ONE Stop: 02/12/20 10:16 Fentanyl (Sublimaze) Confirm Administered Dose 250 mcg .ROUTE .STK-MED ONE Stop: 02/13/20 08:16 Glycopyrrolate (Robinul) Confirm Administered Dose 1 mg .ROUTE .STK-MED ONE Stop: 02/13/20 08:17 Hydromorphone HCl (Dilaudid) 0.5 mg IVPUSH ONETIME ONE Stop: 02/11/20 16:07 Last Admin: 02/11/20 16:25 Dose: 0.5 mg Documented by: Hydromorphone HCl (Dilaudid) 0.5 mg IVPUSH ONETIME ONE Stop: 02/11/20 16:47 Last Admin: 02/11/20 16:52 Dose: 0.5 mg Documented by: Hydromorphone HCl (Dilaudid) 1 mg IVPUSH ONETIME ONE Stop: 02/11/20 19:08 Last Admin: 02/11/20 20:41 Dose: 1 mg Documented by: Hydromorphone HCl (Dilaudid) 1 mg IVPUSH Q2H PRN PRN Reason: Pain (severe 7-10) Last Admin: 02/12/20 10:39 Dose: 1 mg Documented by: Sodium Chloride (Normal Saline) 1,000 mls @ 500 mls/hr IV ASDIRECTED [facility] Last Admin: 02/11/20 20:55 Dose: 500 mls/hr Documented by: Sodium Chloride (Normal Saline) 80 mls @ 3 mls/sec IV ASDIRECTED [facility] Last Admin: 02/11/20 17:11 Dose: 3 mls/sec Documented by: Sodium Chloride (Normal Saline) 1,000 mls @ 100 mls/hr IV ASDIRECTED [facility] Last Admin: 02/12/20 04:42 Dose: 100 mls/hr Documented by: Iopamidol (Isovue-300 (61%)) 100 ml IV . DIRECTED [facility] Last Admin: 02/11/20 17:11 Dose: 100 ml Documented by: Lorazepam (Ativan) 0.5 mg IVPUSH ONETIME ONE Stop: 02/11/20 19:13 Last Admin: 02/11/20 19:20 Dose: 0.5 mg Documented by: Midazolam HCl (Versed 1 Mg/Ml) Confirm Administered Dose 2 mg .ROUTE .STK-MED ONE Stop: 02/12/20 10:16 Neostigmine Methylsulfate (Neostigmine) Confirm Administered Dose 5 mg .ROUTE .STK-MED ONE Stop: 02/13/20 08:17 Ondansetron HCl (Zofran) 4 mg IVPUSH Q4H PRN PRN Reason: Nausea/Vomiting Last Admin: 02/11/20 16:50 Dose: 4 mg Documented by: Ondansetron HCl (Zofran) Confirm Administered Dose 4 mg .ROUTE .STK-MED ONE Stop: 02/13/20 08:17 Pantoprazole Sodium (Protonix Iv) 40 mg IVPUSH ONETIME ONE Stop: 02/11/20 18:32 Last Admin: 02/11/20 18:38 Dose: 40 mg Documented by: Potassium Chloride (Klor-Con M20) 40 meq PO ONETIME ONE Stop: 02/12/20 16:31 Last Admin: 02/12/20 16:58 Dose: Not Given Documented by: Propofol (Diprivan 20 Ml) Confirm Administered Dose 200 mg .ROUTE .STK-MED ONE Stop: 02/12/20 10:16 Propofol (Diprivan 20 Ml) Confirm Administered Dose 200 mg .ROUTE .STK-MED ONE Stop: 02/13/20 08:17 Rocuronium [place]well (Zemuron) Confirm Administered Dose 50 mg .ROUTE .STK-MED ONE Stop: 02/13/20 08:17 Sodium Chloride (Saline Flush) 10 ml FLUSH ASDIRECTED PRN PRN Reason: Keep Vein Open Last Admin: 02/11/20 17:11 Dose: 10 ml Documented by: Succinylcholine Chloride (Quelicin) Confirm Administered Dose 200 mg .ROUTE .ST K-MED ONE Stop: 02/13/20 08:17 - Exam Quality Assessment: No: Supplemental Oxygen General: Alert, Oriented, Cooperative, No Acute Distress Lungs: Normal Respiratory Effort GI/Abdominal Exam: Soft, No Distention Extremities: No Pedal Edema Psy/Mental Status: Alert, Normal Affect Sepsis Event Note - Evaluation Sepsis Screening Result: No Definite Risk - Focused Exam Vital Signs: Vital Signs Temp Pulse Pulse Resp BP Pulse Ox 02/13/20 08:03 36.3 C 81 16 138/87 97 02/13/20 02:00 16 02/12/20 22:29 36.3 C 79 16 131/76 97 Date Exam was Performed: 02/13/20 Time Exam was Performed: 10:02 - Problem List & Annotations (1) Epigastric abdominal pain SNOMED Code(s): 83746991 Code(s): R10.13 - EPIGASTRIC PAIN Status: Acute Current Visit: Yes - Problem List Review Problem List Initiated/Reviewed/Updated: Yes - My Orders Last 24 Hours: My Active Orders 02/12/20 09:00 Clopidogrel [Plavix] 75 mg PO DAILY Metoprolol Succinate [Toprol XL] 50 mg PO DAILY Spironolactone [Aldactone] 25 mg PO DAILY atorvaSTATin [Lipitor] 40 mg PO DAILY 02/12/20 10:41 HYDROmorphone [Dilaudid] 0.5 - 1 mg IVPUSH Q2H PRN - Plan Plan:: ASSESSMENT AND PLAN - Chronic cholecystitis/biliary dyskinesia-nuclear medicine scan abnormal with an ejection fraction of only 15%. Pain is a little better today but persistent. EGD showed only mild gastritis. -Symptomatic management of pain and nausea overnight -Cholecystectomy planned today Secondary hypertension-history of fibromuscular dysplasia with recent angioplasty. Blood pressure currently under good control. -Continue home medications Maintenance issues - - DVT prophylaxis -mechanical - GI prophylaxis -PPI - Nutrition -n.p.o. until after her cholecystectomy Admission justification -patient will be referred observation status for expedited work-up and symptomatic management Disposition -I would anticipate discharge home after the hospital stay Mario Pandya M.D.
[2020-02-13] MEDS: Metoprolol Succinate 50 MG Tab.ER PO SCH (10:40)
[2020-02-13] MEDS: Spironolactone 25 MG Tab PO SCH (11:36)
[2020-02-13] MEDS ORDERED: fentaNYL 100 MCG/2 ML SDV ONE (11:54)
[2020-02-13] MEDS ORDERED: fentaNYL 100 MCG/2 ML SDV IVPUSH ONE (12:56)
[2020-02-13] MEDS ORDERED: hydrOXYzine HCL 100 MG/2 ML SDV IM ONE (12:56)
--- NOTE | 2020-02-13 13:13 | PN ---
DATE OF SERVICE: 02/13/2020 SUBJECTIVE: Mai is n.p.o. She will be having a laparoscopic cholecystectomy today for biliary dyskinesia. She had an EGD yesterday, which showed some antral gastritis. She has no questions or concerns today. Vital signs have been stable and she has been n.p.o. since midnight. OBJECTIVE: GENERAL: Mai is a pleasant 49-year-old female. She is alert and oriented. VITAL SIGNS: TPR at 0803, 97.3, 81, 16, blood pressure 138/87. HEENT: Negative. NECK: Supple. HEART: Regular rate and rhythm. LUNGS: Clear. ABDOMEN: Remains to be tender in the midepigastric and right upper quadrant. EXTREMITIES: Negative. ASSESSMENT: Right upper quadrant abdominal pain status post esophagogastroduodenoscopy, biliary dyskinesia. PLAN: We will evaluate p.r.n. and orders to be written postoperatively. Vee Smith PA-C /[id number]
[2020-02-13] MEDS ORDERED: HYDROmorphone 1 MG/ML Syringe IV PRN (15:00)
[2020-02-13] MEDS ORDERED: HYDROmorphone 0.5 MG/0.5 ML Syringe IVPUSH PRN (15:00)
[2020-02-13] MEDS ORDERED: Ondansetron 4 MG/2 ML SDV IVPUSH PRN (15:00)
[2020-02-13] MEDS: Acetaminophen/HYDROcodone 325-5 MG Tab PO PRN ×2 (18:00→22:14)
[2020-02-13] MEDS: cefOXitin 2 GM in Sodium Chloride 0.9% 50 ML IV SCH ×2 (18:00→23:48)
[2020-02-13] MEDS ORDERED: LORazepam 2 MG/ML SDV IVPUSH PRN (20:20)
[2020-02-13] MEDS ORDERED: atorvaSTATin 20 MG Tab PO SCH (21:00)
[2020-02-14] MEDS: Acetaminophen/HYDROcodone 325-5 MG Tab PO PRN ×2 (05:35→09:29)
[2020-02-14] MEDS: cefOXitin 2 GM in Sodium Chloride 0.9% 50 ML IV SCH (05:40)
[2020-02-14] MEDS ORDERED: Magnesium Hydroxide 400 MG/5 ML Susp 30 ML Cup PO PRN (08:32)
[2020-02-14] MEDS ORDERED: Pantoprazole 40 MG Vial IVPUSH SCH (09:00)
[2020-02-14] MEDS: Spironolactone 25 MG Tab PO SCH (09:55)
[2020-02-14] MEDS: Metoprolol Succinate 50 MG Tab.ER PO SCH (09:55)
[2020-02-14] MEDS: Clopidogrel 75 MG Tab PO SCH (09:55)
--- NOTE | 2020-02-14 14:24 | OR ---
DATE OF PROCEDURE: 02/12/2020 SURGEON: Calos Ramirez MD PREOPERATIVE DIAGNOSIS: Upper abdominal discomfort and bloating. POSTOPERATIVE DIAGNOSIS: Upper endoscopy showing very mild antral gastritis. OPERATIVE PROCEDURE: Esophagogastroduodenoscopy with antral biopsies for CLOtest. ANESTHESIA: IV sedation. INDICATIONS FOR PROCEDURE: This is a 49-year-old admitted with ongoing discomfort in the upper abdomen. This has been ongoing for some time with bloating and upper abdominal discomfort. The patient underwent a HIDA scan earlier today which showed a below normal ejection fraction and CCK injection reproduced some of the patient's symptoms. To undergo an upper endoscopy presently to rule out current significant upper GI pathology. Potential risks of the procedure including bleeding and perforation were discussed, and the patient wishes to proceed. DETAILS OF PROCEDURE: The patient was taken to the operating room, placed in a left lateral decubitus position. IV sedation was administered, after which the upper GI endoscope was passed orally through the length of the esophagus into the stomach with retroflexion view of the fundus, thereafter through the pyloric channel and into the proximal duodenum. Findings included normal hypopharynx, larynx, upper esophageal sphincter, esophageal body. At the EG junction, there was significant hiatal hernia and significant inflammation was noted. There was no significant upward extension of the gastroesophageal junction mucosal line with some additional amount of retained bile. In the antrum, there was some very mild patchy reddened areas. These were not associated with erosions or ulcers, and the pyloric channel and duodenum to the junction of 3rd and 4th portions were otherwise unremarkable. The scope was then withdrawn into the antrum. Biopsies were obtained and sent for CLOtest for H pylori. Minimal bleeding from the biopsy site was seen and the procedure was then concluded. The patient's HIDA scan this morning could be quite abnormal both from an ejection fraction standpoint as well as reproduction of significant amount of the patient's symptoms. Plan will be to proceed with a laparoscopic cholecystectomy tomorrow morning. Calos Ramirez MD /[id number]
--- NOTE | 2020-02-15 07:51 | EDM.PDOC ---
ED HPI GENERAL MEDICAL PROBLEM - General Chief Complaint: Abdominal Pain Stated Complaint: ABDOMINAL PAIN, SOB Time Seen by Provider: 02/11/20 19:06 Source of Information: Reports: Patient History Limitations: Reports: No Limitations - History of Present Illness Onset: Gradual Duration: Day(s):, Getting Worse Location: Reports: Abdomen Quality: Reports: Ache, Dull, Pressure, Stabbing Severity: Mild Improves with: Reports: Medication Worsens with: Reports: None Associated Symptoms: Reports: No Other Symptoms Epigastric Pain Score (Numeric/FACES): 4 - Related Data Allergies Allergy/AdvReac Type Severity Reaction Status Date / Time No Known Allergies Allergy Verified 02/11/20 15:38 Home Meds: Home Meds Clopidogrel [Plavix] 75 mg PO DAILY 02/11/20 [History] Metoprolol Succinate 50 mg PO DAILY 02/11/20 [History] Spironolactone [Aldactone] 25 mg PO DAILY 02/11/20 [History] atorvaSTATin [Lipitor] 40 mg PO BEDTIME 02/11/20 [History] Past Medical History Cardiovascular History: Reports: High Cholesterol, Hypertension Genitourinary History: Reports: Other (See Below) - Past Surgical History Cardiovascular Surgical History: Reports: Other (See Below) Other Cardiovascular Surgeries/Procedures: angioplasty Social & Family History - Family History Cardiac: Reports: CAD - Tobacco Use Smoking Status *Q: Never Smoker - Caffeine Use Caffeine Use: Reports: Coffee - Recreational Drug Use Recreational Drug Use: No ED ROS GENERAL - Review of Systems Review Of Systems: See Below Constitutional: Reports: Malaise. Denies: Fever, Chills HEENT: Reports: No Symptoms Respiratory: Reports: Shortness of Breath (Feels like she cannot get a full br eath especially with activity) Cardiovascular: Reports: Chest Pain (Lower chest discomfort anteriorly), Dyspnea on Exertion GI/Abdominal: Reports: Abdominal Pain (Abdominal pain is in a belt-like distribution around the upper abdomen and chest), Nausea : Reports: No Symptoms Musculoskeletal: Reports: No Symptoms Skin: Reports: No Symptoms Neurological: Denies: Headache Psychiatric: Reports: No Symptoms ED EXAM, GENERAL - Physical Exam Exam: See Below Exam Limited By: No Limitations General Appearance: Alert, Mild Distress (Patient is fairly uncomfortable) Eye Exam: Bilateral Eye: Normal Inspection (No jaundice) Respiratory/Chest: No Respiratory Distress, Lungs Clear Cardiovascular: Regular Rate, Rhythm, Tachycardia GI/Abdominal: Soft, No Distention, Tender (She is tender to palpation across the upper abdomen, somewhat worse in the right upper quadrant with a positive Barclay sign) Back Exam: Normal Inspection, Full Range of Motion Extremities: No Pedal Edema Psychiatric: Anxious Skin Exam: Warm, Dry Course - Vital Signs Last Recorded V/S: Last Vital Signs Temp 96.0 F L 02/14/20 11:00 Pulse 87 02/14/20 07:46 Resp 16 02/14/20 11:00 BP 120/66 02/14/20 07:46 Pulse Ox 95 02/14/20 07:46 - Orders/Labs/Meds Labs: Laboratory Tests 02/11/20 02/11/20 02/11/20 Range/Units 16:15 16:15 16:15 WBC 8.8 (4.5-11.0) K/uL RBC 4.54 (3.30-5.50) M/uL Hgb 15.0 (12.0-15.0) g/dL Hct 45.7 (36.0-48.0) % MCV 101 H (80-98) fL MCH 33 H (27-31) pg MCHC 33 (32-36) % Plt Count 339 (150-400) K/uL Neut % (Auto) 66 (36-66) % Lymph % (Auto) 22 L (24-44) % [place] % (Auto) 11 H (2-6) % Eos % (Auto) 1 L (2-4) % Baso % (Auto) 1 (0-1) % Sodium 137 L (140-148) mmol/L Potassium 3.6 (3.6-5.2) mmol/L Chloride 98 L (100-108) mmol/L Carbon Dioxide 28 (21-32) mmol/L Anion Gap 14.6 H (5.0-14.0) mmol/L BUN 8 (7-18) mg/dL Creatinine 0.8 (0.6-1.0) mg/dL Est Cr Clr Drug Dosing 81.81 mL/min Estimated GFR (MDRD) > 60 (>60) Glucose 106 (74-106) mg/dL Calcium 9.5 (8.5-10.1) mg/dL Total Bilirubin 1.1 H (0.2-1.0) mg/dL AST 87 H (15-37) U/L ALT 83 H (12-78) U/L Alkaline Phosphatase 120 H (46-116) U/L Troponin I < 0.017 (0.000-0.056) ng/mL C-Reactive Protein (0.0-0.3) mg/dL Total Protein 8.0 (6.4-8.2) g/dL Albumin 4.5 (3.4-5.0) g/dL Globulin 3.5 (2.3-3.5) g/dL Albumin/Globulin Ratio 1.3 (1.2-2.2) Lipase 78 (73-393) U/L SARS Virus RNA (PCR) (NEGATIVE) 02/11/20 02/11/20 02/12/20 Range/Units 19:14 19:25 04:37 WBC 6.2 (4.5-11.0) K/uL RBC 4.15 (3.30-5.50) M/uL Hgb 13.4 (12.0-15.0) g/dL Hct 42.4 (36.0-48.0) % MCV 102 H (80-98) fL MCH 32 H (27-31) pg MCHC 32 (32-36) % Plt Count 307 (150-400) K/uL Neut % (Auto) (36-66) % Lymph % (Auto) (24-44) % [place] % (Auto) (2-6) % Eos % (Auto) (2-4) % Baso % (Auto) (0-1) % Sodium (140-148) mmol/L Potassium (3.6-5.2) mmol/L Chloride (100-108) mmol/L Carbon Dioxide (21-32) mmol/L Anion Gap (5.0-14.0) mmol/L BUN (7-18) mg/dL Creatinine (0.6-1.0) mg/dL Est Cr Clr Drug Dosing mL/min Estimated GFR (MDRD) (>60) Glucose (74-106) mg/dL Calcium (8.5-10.1) mg/dL Total Bilirubin (0.2-1.0) mg/dL AST (15-37) U/L ALT (12-78) U/L Alkaline Phosphatase (46-116) U/L Troponin I (0.000-0.056) ng/mL C-Reactive Protein 0.08 (0.0-0.3) mg/dL Total Protein (6.4-8.2) g/dL Albumin (3.4-5.0) g/dL Globulin (2.3-3.5) g/dL Albumin/Globulin Ratio (1.2-2.2) Lipase (73-393) U/L SARS Virus RNA (PCR) Negative (NEGATIVE) 02/12/20 02/13/20 Range/Units 04:37 04:42 WBC (4.5-11.0) K/uL RBC (3.30-5.50) M/uL Hgb (12.0-15.0) g/dL Hct (36.0-48.0) % MCV (80-98) fL MCH (27-31) pg MCHC (32-36) % Plt Count (150-400) K/uL Neut % (Auto) (36-66) % Lymph % (Auto) (24-44) % [place] % (Auto) (2-6) % Eos % (Auto) (2-4) % Baso % (Auto) (0-1) % Sodium 140 140 (140-148) mmol/L Potassium 3.5 L 4.2 (3.6-5.2) mmol/L Chloride 105 107 (100-108) mmol/L Carbon Dioxide 28 29 (21-32) mmol/L Anion Gap 10.5 3.6 L (5.0-14.0) mmol/L BUN 5 L 2 L D (7-18) mg/dL Creatinine 0.8 0.7 (0.6-1.0) mg/dL Est Cr Clr Drug Dosing 81.81 93.50 mL/min Estimated GFR (MDRD) > 60 > 60 (>60) Glucose 111 H 125 H (74-106) mg/dL Calcium 7.8 L D 8.3 L (8.5-10.1) mg/dL Total Bilirubin 1.1 H (0.2-1.0) mg/dL AST 51 H (15-37) U/L ALT 56 (12-78) U/L Alkaline Phosphatase 94 (46-116) U/L Troponin I (0.000-0.056) ng/mL C-Reactive Protein (0.0-0.3) mg/dL Total Protein 6.0 L (6.4-8.2) g/dL Albumin 3.2 L (3.4-5.0) g/dL Globulin 2.8 (2.3-3.5) g/dL Albumin/Globulin Ratio 1.1 L (1.2-2.2) Lipase (73-393) U/L SARS Virus RNA (PCR) (NEGATIVE) Meds: Medications Discontinued Medications Generic Name Dose Route Start Last Admin Trade Name Freq PRN Reason Stop Dose Admin Acetaminophen 650 mg 02/11/20 20:57 Tylenol PO Q4H PRN Pain (Mild 1-3)/fever Hydrocodone Bitart/Acetaminophen 1 - 2 tab 02/13/20 15:00 02/14/20 09:29 Muse 325-5 Mg PO 1 tab Q4H PRN Administration PAIN Atorvastatin Calcium 40 mg 02/11/20 21:00 02/11/20 23:00 Lipitor PO Not Given BEDTIME ASHWIN Atorvastatin Calcium 40 mg 02/12/20 09:00 02/13/20 09:23 Lipitor PO Not Given DAILY ASHWIN Atorvastatin Calcium 40 mg 02/13/20 21:00 02/13/20 20:40 Lipitor PO 40 mg BEDTIME ASHWIN Administration Bupivacaine HCl/Epinephrine Bitart Confirm 02/13/20 07:02 02/13/20 11:53 Marcaine 0.5%/Epinephrine 1:200,000 Administered 02/13/20 07:03 10 ml Dose Administration 50 ml .ROUTE .STK-MED ONE Clopidogrel Bisulfate 75 mg 02/12/20 09:00 02/14/20 09:55 Plavix PO Not Given DAILY ASHWIN Al Hydroxide/Mg Hydroxide 15 0 ml 02/11/20 17:35 02/11/20 17:45 ml/ Lidocaine HCl 15 ml PO 02/11/20 17:36 15 ml ONETIME ONE Administration Ropivacaine 40 ml/ 0 ml 02/13/20 09:30 02/13/20 12:10 Dexamethasone 8 mg/ NERVRT 80 syringe Epinephrine HCl 0.4 mg/ Sodium ASDIRECTED ASHWIN Administration Chloride 37.6 ml Dexamethasone Confirm 02/13/20 08:16 Dexamethasone Administered 02/13/20 08:17 Dose 4 mg .ROUTE .STK-MED ONE Fentanyl Confirm 02/12/20 10:15 Sublimaze Administered 02/12/20 10:16 Dose 100 mcg .ROUTE .STK-MED ONE Fentanyl Confirm 02/13/20 08:15 Sublimaze Administered 02/13/20 08:16 Dose 250 mcg .ROUTE .STK-MED ONE Fentanyl Confirm 02/13/20 11:54 Sublimaze Administered 02/13/20 11:55 Dose 100 mcg .ROUTE .STK-MED ONE Fentanyl 50 mcg 02/13/20 12:56 02/13/20 13:02 Sublimaze IVPUSH 02/13/20 12:57 50 mcg ONETIME ONE Administration Glycopyrrolate Confirm 02/13/20 08:16 Robinul Administered 02/13/20 08:17 Dose 1 mg .ROUTE .STK-MED ONE Hydromorphone HCl 0.5 mg 02/11/20 16:06 02/11/20 16:25 Dilaudid IVPUSH 02/11/20 16:07 0.5 mg ONETIME ONE Administration Hydromorphone HCl 0.5 mg 02/11/20 16:46 02/11/20 16:52 Dilaudid IVPUSH 02/11/20 16:47 0.5 mg ONETIME ONE Administration Hydromorphone HCl 1 mg 02/11/20 19:07 02/11/20 20:41 Dilaudid IVPUSH 02/11/20 19:08 1 mg ONETIME ONE Administration Hydromorphone HCl 1 mg 02/11/20 20:57 02/12/20 10:39 Dilaudid IVPUSH 1 mg Q2H PRN Administration Pain (severe 7-10) Hydromorphone HCl 0.5 - 1 mg 02/12/20 10:41 02/13/20 09:22 Dilaudid IVPUSH 0.5 mg Q2H PRN Administration Pain Hydromorphone HCl 0.5 mg 02/13/20 15:00 02/13/20 15:01 Dilaudid IVPUSH 0.5 mg Q2H PRN Administration MODERATE PAIN Hydromorphone HCl 1 mg 02/13/20 15:00 Dilaudid IV Q2H PRN SEVERE PAIN Hydroxyzine HCl 75 mg 02/13/20 12:56 02/13/20 13:03 Vistaril IM 02/13/20 12:57 75 mg ONETIME ONE Administration Sodium Chloride 1,000 mls @ 500 mls/hr 02/11/20 16:15 02/11/20 20:55 Normal Saline IV 500 mls/hr ASDIRECTED ASHWIN Administration Sodium Chloride 80 mls @ 3 mls/sec 02/11/20 17:00 02/11/20 17:11 Normal Saline IV 3 mls/sec ASDIRECTED ASHWIN Administration Sodium Chloride 1,000 mls @ 100 mls/hr 02/11/20 20:57 02/12/20 04:42 Normal Saline IV 100 mls/hr ASDIRECTED ASHWIN Administration Dextrose/Lactated Ringer's 1,000 mls @ 100 mls/hr 02/12/20 14:30 02/13/20 23:49 Dextrose 5%-Lactated Ringers IV 100 mls/hr ASDIRECTED ASHWIN Administration Cefoxitin Sodium 2 gm/ Sodium 50 mls @ 100 mls/hr 02/13/20 09:30 02/13/20 11:23 Chloride IV 02/13/20 09:59 100 mls/hr ONETIME ONE Administration Cefoxitin Sodium 2 gm/ Sodium 50 mls @ 100 mls/hr 02/13/20 18:00 02/14/20 05:40 Chloride IV 100 mls/hr Q6H ASHWIN Administration Iopamidol 100 ml 02/11/20 17:00 02/11/20 17:11 Isovue-300 (61%) IV 100 ml . DIRECTED ASHWIN Administration Ketamine HCl 30 mg 02/13/20 09:30 Ketalar IV ASDIRECTED ASHWIN Lorazepam 0.5 mg 02/11/20 19:12 02/11/20 19:20 Ativan IVPUSH 02/11/20 19:13 0.5 mg ONETIME ONE Administration Lorazepam 0.5 mg 02/11/20 20:57 02/12/20 20:18 Ativan IVPUSH 0.5 mg Q4H PRN Administration Nausea/Vomiting Lorazepam 0.5 mg 02/13/20 20:20 02/13/20 20:40 Ativan IVPUSH 0.5 mg Q4H PRN Administration Anxiety Magnesium Hydroxide 60 ml 02/14/20 08:32 02/14/20 10:21 Milk Of Magnesia PO 60 ml ASDIRECTED PRN Administration HOME CONSTIPATION Metoclopramide HCl 5 mg 02/11/20 20:57 Reglan IVPUSH Q6H PRN Nausea Metoprolol Succinate 50 mg 02/12/20 09:00 02/14/20 09:55 Toprol Xl PO Not Given DAILY ASHWIN Midazolam HCl Confirm 02/12/20 10:15 Versed 1 Mg/Ml Administered 02/12/20 10:16 Dose 2 mg .ROUTE .STK-MED ONE Neostigmine Methylsulfate Confirm 02/13/20 08:16 Neostigmine Administered 02/13/20 08:17 Dose 5 mg .ROUTE .STK-MED ONE Ondansetron HCl 4 mg 02/11/20 16:45 02/11/20 16:50 Zofran IVPUSH 4 mg Q4H PRN Administration Nausea/Vomiting Ondansetron HCl 4 mg 02/11/20 20:57 02/12/20 04:41 Zofran IV 4 mg Q6H PRN Administration Nausea/Vomiting Ondansetron HCl 4 mg 02/11/20 20:57 Zofran Odt PO Q6H PRN Nausea able to take PO Ondansetron HCl Confirm 02/13/20 08:16 Zofran Administered 02/13/20 08:17 Dose 4 mg .ROUTE .STK-MED ONE Ondansetron HCl 4 mg 02/13/20 15:00 02/13/20 18:00 Zofran IVPUSH 4 mg Q4H PRN Administration Nausea/Vomiting Oxycodone HCl 5 - 10 mg 02/11/20 20:57 Oxycodone PO Q4H PRN Pain Pantoprazole Sodium 40 mg 02/11/20 18:31 02/11/20 18:38 Protonix Iv IVPUSH 02/11/20 18:32 40 mg ONETIME ONE Administration Pantoprazole Sodium 40 mg 02/12/20 09:00 02/13/20 09:23 Protonix Iv IVPUSH 40 mg BID ASHWIN Administration Pantoprazole Sodium 40 mg 02/14/20 09:00 Protonix Iv IVPUSH Q24H ASHWIN Pantoprazole Sodium 40 mg 02/15/20 09:30 Protonix PO ACBREAKFAST ASHWIN Potassium Chloride 40 meq 02/12/20 16:30 02/12/20 16:58 Klor-Con M20 PO 02/12/20 16:31 Not Given ONETIME ONE Propofol Confirm 02/12/20 10:15 Diprivan 20 Ml Administered 02/12/20 10:16 Dose 200 mg .ROUTE .STK-MED ONE Propofol Confirm 02/13/20 08:16 Diprivan 20 Ml Administered 02/13/20 08:17 Dose 200 mg .ROUTE .STK-MED ONE Rocuronium [place] Confirm 02/13/20 08:16 Zemuron Administered 02/13/20 08:17 Dose 50 mg .ROUTE .STK-MED ONE Sodium Chloride 10 ml 02/11/20 17:00 02/11/20 17:11 Saline Flush FLUSH 10 ml ASDIRECTED PRN Administration Keep Vein Open Spironolactone 25 mg 02/12/20 09:00 02/14/20 09:55 Aldactone PO Not Given DAILY ASHWIN Succinylcholine Chloride Confirm 02/13/20 08:16 Quelicin Administered 02/13/20 08:17 Dose 200 mg .ROUTE .STK-MED ONE - Re-Assessments/Exams Free Text/Narrative Re-Assessment/Exam: 02/15/20 07:49 A bedside ultrasound looked normal in the right upper quadrant. An IV was started and the patient was given IV Dilaudid for pain control, CBC CMP and lipase obtained. Mild elevation of LFT and bilirubin were found, the rest of her labs were reassuring. She only had moderate response to the pain medication so an additional dose was given, a CT of the abdomen and pelvis was done. 02/15/20 07:50 CT was relatively normal as well, because of the very persistent discomfort despite her attempts to control her pain including a GI cocktail, patient will be admitted for further evaluation and surgical consultation. She will need a HIDA scan, possibly an ultrasound or EGD. Departure - Departure Time of Disposition: 20:34 Disposition: Admitted As Inpatient 65 Clinical Impression: Abdominal pain Qualifiers: Abdominal location: upper abdomen, unspecified Qualified Code(s): R10.10 - Upper abdominal pain, unspecified - Discharge Information Sepsis Event Note (ED) - Evaluation Sepsis Screening Result: No Definite Risk
[2020-02-15] MEDS ORDERED: Pantoprazole 40 MG Tab.CR PO SCH (09:30)
--- NOTE | 2020-02-16 11:27 | DISCH ---
FINAL DIAGNOSES: 1. Chronic cholecystitis with inflammatory adherence to duodenum. 2. Fatty infiltration of liver (grossly visualized, biopsies pending). 3. History of hyperlipidemia. 4. History of hypertension. 5. History of coronary artery disease, status post angioplasty. OPERATIVE PROCEDURE: 1. On 02/12/2020, upper gastrointestinal endoscopy with antral biopsies for CLOtest. 2. On 02/13/2020, diagnostic laparoscopy with lysis of adhesions. 3. a. Cholecystectomy. b. Repair of area of deserosalization of duodenum. c. Needle liver biopsies. SUMMARY: This is a 49-year-old presenting with abdominal discomfort and bloating that has been going on for sometime and became much worse on the day of admission. She was admitted overnight with initial HIDA scan that showed ejection fraction hovering around 15% with at least a partial reproduction of the patient's symptoms with the CCK injection. Upper endoscopy was also done, which showed very minimal antral gastritis. Biopsies were obtained to obtain the patient's H pylori status by means of a CLOtest. The CLOtest was negative for H pylori. On 02/13/2020, the patient underwent diagnostic laparoscopy. The gallbladder was somewhat more diseased than one would have guessed based on the preoperative imaging. There was obviously chronic cholecystitis. The gallbladder bile was quite thickened indicating relatively poor emptying of the gallbladder consistent with HIDA scan finding and containing some fine sludge within it. The neck of the gallbladder was densely adherent to the duodenum as well, and this was taken down, and the deserosalization of the duodenum was repaired with some sutures and reinforced with fibrin sealant and omental patch. The patient had some grossly evident fatty infiltration of liver, although liver was not enlarged per se, and there was no evidence of portal hypertension. Two needle biopsies of the right lobe of the liver were obtained and histology on those is pending. The patient will be discharged home at this point. She will continue her usual home medications, which include Lipitor 40 mg at bedtime, metoprolol 50 mg daily, Plavix 75 mg p.o. daily, and Aldactone 25 mg p.o. daily. In addition, she will be sent home with [place] 5/325 1 to 2 tablets q.6 hours p.r.n. pain #40 and 2 doses of milk of magnesia to take as needed. She will be instructed to follow up with her personal physician on 02/23/2020, and otherwise, wound care instructions will be given, and she will be on a regular diet.
--- NOTE | 2020-02-17 16:34 | OR ---
DATE OF PROCEDURE: 02/13/2020 SURGEON: Calos Ramirez MD PREOPERATIVE DIAGNOSIS: Biliary dyskinesia. POSTOPERATIVE DIAGNOSES: 1. Biliary dyskinesia associated with marked chronic cholecystitis with inflammatory adherence to duodenum. 2. Fatty infiltration of liver. OPERATIVE PROCEDURES: Diagnostic laparoscopy with lysis of adhesions and, 1. Cholecystectomy (88415). 2. Repair of area of deserosalization of duodenum (45489). 3. Wilber-Cut needle liver biopsy (15146). ANESTHESIA: General. ELECTRIC REFRIGERATOR PREPARER: Vee Smith PA-C INDICATION FOR PROCEDURE: This is a 49-year-old presenting with worsening episodes of upper abdominal pain. Workup thus far showed negligible problems on upper GI endoscopy. The CCK- stimulated HIDA scan showed only 15% ejection fraction with the CCK injection, to a large extent reproducing the patient's symptoms. Plan therefore is to proceed with laparoscopic or if necessary open cholecystectomy. Potential risks of the procedure including bleeding, infection, injury to underlying viscera, problems with possible migration of stones in the common bile duct requiring additional procedures for correction, as well as the possibility of some persistent symptoms postoperatively were all gone over, and the patient wishes to proceed. DETAILS OF PROCEDURE: The patient was taken to the operating room and placed in a supine position. After general endotracheal anesthesia was induced, the abdomen was prepped and draped. In the epigastrium, a transverse incision was made and the peritoneal cavity entered under direct vision with an Optiview trocar, inflated to 15 mmHg with CO2. Laparoscope was then reinserted and no underlying trocar insertion site injuries were seen. Following this, a 12 mm subumbilical trocar was placed along with a single 5 mm right abdominal trocar. Bilateral subcostal transversus abdominis plane blocks were then placed. Upon examining the upper abdomen, it was noted there were large amount of adhesions between the omentum and the gallbladder consistent with some ongoing inflammatory state over time. There was also some grossly evident fatty infiltration of the liver. Photodocumentation of these was obtained. Upon taking down the adhesions between the gallbladder and omentum, further dissection revealed the gallbladder neck to be densely adherent to the duodenum. This was gradually dissected down to the level of the gallbladder neck and cystic duct junction, reflecting the duodenum away from the gallbladder and area of the cystohepatic triangle. During the course of that, there was some evident deserosalization of the duodenum due to it essentially being fused with the gallbladder neck and area of the cystohepatic triangle. At that point, then the gallbladder appeared to be ready for further dissection. The dissection in the area of the gallbladder neck and cystic duct junction was initiated and once that area was well-delineated as well as the adjacent cystic artery, both structures were clipped 3 times proximally and once distally and divided. Gallbladder was then dissected off the gallbladder bed using Harmonic scalpel and delivered through the upper midline port. It contained some sludge-like material but no well-defined stones. At this point, needle liver biopsies were obtained from the quadrate lobe of the liver and hemostasis at the biopsy site was controlled with electrocautery. The area of the deserosalization of liver was then addressed and that area was then approximated with some seromuscular 3-0 Vicryl stitch and then fibrin sealant and then an omental patch placed over the duodenum. At this point, bile duct closure and hemostasis appeared to be adequate and a drain was felt not to be necessary. Trocars were sequentially removed, and the peritoneal cavity deflated. The fascia at the 12 mm sites was closed with 0 Vicryl stitch, and the skin with 4-0 Vicryl skin stitch. Dressing was applied. The patient was taken to the recovery room in satisfactory condition. Physician observation assistant, Vee Smith, played an essential role in assisting in this case, helping to position the patient, retract structures as needed, as well as suturing and cutting sutures when indicated. Her presence improved patient safety and decreased the operative time. Calos Ramirez MD /[id number]
== END 2020-02-14 12:21 | disposition home or self-care (01) | DRG 419 ==
LOC: JP.ED 15:22 → JP.MS 20:04 → OBSVTOIN 02-13 12:50
PROVIDERS: ADMIT Internal Medicine; ATTEND Internal Medicine
PROC: 0DB78ZX Excision of Stomach, Pylorus, Via Natural or Artificial Opening Endoscopic, Diagnostic (ICD-10-PCS; 2020-02-12)
PROC: 0FT44ZZ Resection of Gallbladder, Percutaneous Endoscopic Approach (ICD-10-PCS; principal; 2020-02-13)
PROC: 0DQ94ZZ Repair Duodenum, Percutaneous Endoscopic Approach (ICD-10-PCS; 2020-02-13)
PROC: 0FB14ZX Excision of Right Lobe Liver, Percutaneous Endoscopic Approach, Diagnostic (ICD-10-PCS; 2020-02-13)
DX: K81.1 Chronic cholecystitis (principal); K76.0 Fatty (change of) liver, not elsewhere classified; E78.5 Hyperlipidemia, unspecified; I10 Essential (primary) hypertension; I25.10 Atherosclerotic heart disease of native coronary artery without angina pectoris; K82.8 Other specified diseases of gallbladder; K29.80 Duodenitis without bleeding; K29.70 Gastritis, unspecified, without bleeding; Z20.828 Contact with and (suspected) exposure to other viral communicable diseases; E78.00 Pure hypercholesterolemia, unspecified; Z79.02 Long term (current) use of antithrombotics/antiplatelets; Z79.899 Other long term (current) drug therapy
CPT/HCPCS: 36415; 74177; 78227; 78227-26; 80048; 80053; 82247; 83690; 84075; 84484; 85025; 85027; 86140; 87081; 96361; 96374; 96375; 96376; 99285-25; A9270-GY; C9113; G0378; J0171; J0330; J0694; J1100; J1170; J2060; J2250; J2405; J2704; J2710; J2795; J3010; J3410; J3490; J7030; J7050; J7121; Q9967; U0002